=== PATIENT | male | born 1945 | race Caucasian/White ===

== ENCOUNTER → 2016-07-16 | Outpatient (CLI) | payer OTHER ==
[~2016-07-16] MED LIST: BLOOD PRESSURE MED; FENTANYL PF 100 MCG/2ML ONE; MIDAZOLAM 1 MG/ML, 5ML ONE; PIOG15TA9 PO; ROSU5TAB PO
== END | disposition home or self-care (01) ==
LOC: RAD 07:56
PROVIDERS: ATTEND Family Medicine
DX: M48.06 Spinal stenosis, lumbar region (principal); M47.895 Other spondylosis, thoracolumbar region; M47.897 Other spondylosis, lumbosacral region; M51.26 Other intervertebral disc displacement, lumbar region; M89.8X8 Other specified disorders of bone, other site; M79.605 Pain in left leg; M79.604 Pain in right leg; R20.0 Anesthesia of skin
CPT/HCPCS: 72148; J2250; J3010; 99156; 99157

== ENCOUNTER → 2018-04-23 | Outpatient (CLI) | payer OTHER ==
[~2018-04-23] MED LIST changes: +ALIS300T PO; +ASPI-496 PO; +CHOL40002 PO; +EXEN2VIA SC; +FEBU40TA PO; -FENTANYL PF 100 MCG/2ML ONE; +FOLI-17 PO; +INSU100I28 SC; +LORA-702 PO; +METH500T98 PO; -MIDAZOLAM 1 MG/ML, 5ML ONE; +MULT-717 PO; +OMEG1CAP23 PO; +PIOG15TA22 PO; -PIOG15TA9 PO; +VITA400T6 PO
[2018-04-23 09:38] LABS: ALANINE AMINOTRANSFERASE 47 U/L (12-78); ALBUMIN 3.7 g/dL (3.4-5.0); ANION GAP 9 mmol/L (5-15); CALCIUM 8.5 mg/dL (8.5-10.1); CHLORIDE 102 mmol/L (98-107); CREATININE 1.17 mg/dL (0.7-1.3)
[2018-04-23 09:40] LABS: ALKALINE PHOSPHATASE 73 U/L (45-117); BILIRUBIN,TOTAL 0.8 mg/dL (0.2-1.0); TOTAL PROTEIN 7.9 g/dL (6.4-8.2)
== END | disposition home or self-care (01) ==
LOC: STAR 08:20
PROVIDERS: ATTEND Thoracic Surgery (Cardiothoracic Vascular Surgery)
DX: Z01.818 Encounter for other preprocedural examination (principal)
CPT/HCPCS: 36415; 80053; 93005

== ENCOUNTER 2018-04-30 12:00 | Day surgery (SDC) | payer OTHER ==
[2018-04-23 08:51] VITALS: BP 132/88
[~2018-04-30] VITALS: Ht 188 cm; Wt 96.4 kg
[~2018-04-30 12:00] MED LIST changes: +BUPIVACAINE/PF-EPI 0.5% 1:200K ONE
[2018-04-30] MEDS ORDERED: LACTATED RINGERS 1,000 ML IV SCH ×2 (12:04→14:35)
[2018-04-30] MEDS ORDERED: ACETAMINOPHEN 500 MG TABLET PO ONE (12:30)
[2018-04-30] MEDS ORDERED: ONDANSETRON ODT 8 MG PO ONE (12:30)
[2018-04-30] MEDS ORDERED: GABAPENTIN 300 MG CAPSULE PO ONE (12:30)
[2018-04-30] MEDS ORDERED: FENTANYL PF 250 MCG/5ML ONE (13:03)
[2018-04-30] MEDS ORDERED: MIDAZOLAM 1 MG/ML, 2ML ONE (13:03)
[2018-04-30] MEDS ORDERED: KETOROLAC 30 MG/1 ML ONE (13:33)
[2018-04-30] MEDS ORDERED: PHENYLEPHRINE 10 MG/ML ONE (13:33)
[2018-04-30] MEDS ORDERED: GLYCOPYRROLATE 0.2MG/1ML, 5ML ONE (13:33)
[2018-04-30] MEDS ORDERED: ALBUTEROL/IPRATROPIUM 2.5MG/0.5MG, 3 ML NPPB PRN (14:00)
[2018-04-30] MEDS ORDERED: PROMETHAZINE 25 MG/ML, 1ML IV PRN (14:00)
[2018-04-30] MEDS ORDERED: OXYcodone 5 MG/5 ML ORAL.SOL UDC PO PRN (14:00)
[2018-04-30] MEDS ORDERED: HYDROmorphone 2 MG/ML, 1ML IVPush PRN (14:00)
[2018-04-30] MEDS ORDERED: ONDANSETRON 2MG/ML, 2ML IV PRN (14:00)
[2018-04-30] MEDS ORDERED: FENTANYL PF 100 MCG/2ML IV PRN (14:00)
[2018-04-30] MEDS ORDERED: hydrALAzine 20 MG/ML, 1ML IV PRN (14:00)
[2018-04-30] MEDS ORDERED: MEPERIDINE/PF 25MG/0.5ML IVPush PRN (14:00)
[2018-04-30] MEDS ORDERED: METOPROLOL 1 MG/ML, 5ML IV PRN (14:00)
[2018-04-30] MEDS ORDERED: MIDAZOLAM 1 MG/ML, 2ML IV PRN (14:00)
[2018-04-30] MEDS ORDERED: SUCCINYLCHOLINE 20 MG/ML, 10ML ONE (14:21)
[2018-04-30] MEDS ORDERED: ROCURONIUM 10MG/ML,5ML ONE (14:21)
[2018-04-30] MEDS ORDERED: DEXAMETHASONE 4 MG/ML, 1ML ONE (14:21)
[2018-04-30] MEDS ORDERED: NEOSTIGMINE 1 MG/ML, 10ML ONE (14:21)
[2018-04-30] MEDS ORDERED: PROPOFOL 10 MG/ML, 20ML ONE (14:21)
[2018-04-30] MEDS ORDERED: CEFAZOLIN 1,000 MG ONE (14:21)
[2018-04-30] MEDS ORDERED: OXYcodone 5 MG/5 ML ORAL.SOL UDC ONE (14:49)
[2018-04-30] MEDS ORDERED: ONDANSETRON 2MG/ML, 2ML IVPush PRN (15:00)
[2018-04-30] MEDS ORDERED: morphine SULFATE 10 MG/ML, 1ML IVPush PRN (15:00)
[2018-04-30] MEDS ORDERED: HYDROcodone/APAP 5/325 TABLET PO PRN (15:00)
== END 2018-04-30 17:35 | disposition home or self-care (01) ==
LOC: OUT 12:00 → UNDOADMOB 14:35 → ORIP 14:35 → OUT 17:35
PROVIDERS: ATTEND Thoracic Surgery (Cardiothoracic Vascular Surgery)
DX: K40.20 Bilateral inguinal hernia, without obstruction or gangrene, not specified as recurrent (principal); K21.9 Gastro-esophageal reflux disease without esophagitis; E11.9 Type 2 diabetes mellitus without complications; M10.9 Gout, unspecified; E78.00 Pure hypercholesterolemia, unspecified; I10 Essential (primary) hypertension; G47.33 Obstructive sleep apnea (adult) (pediatric); Z85.46 Personal history of malignant neoplasm of prostate; Z96.649 Presence of unspecified artificial hip joint; Z96.659 Presence of unspecified artificial knee joint; Z98.890 Other specified postprocedural states; Z79.82 Long term (current) use of aspirin; Z79.899 Other long term (current) drug therapy; Z79.4 Long term (current) use of insulin; Z72.89 Other problems related to lifestyle
CPT/HCPCS: 49650; 82962; J0330; J0690; J1100; J1885; J2250; J2370; J2704; J2710; J3010; J3490; J7120; Q0162; C1727; C1781

== ENCOUNTER 2018-08-30 16:56 | Emergency (ER) | payer OTHER ==
[~2018-08-30] VITALS: Ht 188 cm; Wt 100.0 kg
[~2018-08-30 16:56] MED LIST changes: -BUPIVACAINE/PF-EPI 0.5% 1:200K ONE
--- NOTE | 2018-08-30 17:45 | NUR ---
Pt reports intermitent RUQ pain x3 days with nausea starting today. Denies vomiting, states he called primary md and was told to come in. Pt denies need for pain or nausea meds. PA notified of pts hr (130's) pt denies cp, sob, palpitations. States "my oxygen is usually at 90% so dont worry" Pt rm air sats 88-91%, no resp distress noted. Fluids infusing
[2018-08-30 17:46] LABS: BASOPHILS % (AUTO) 0 % (0-1); EOSINOPHILS # (AUTO) 0.03 x10^3/uL (0-0.4); EOSINOPHILS % (AUTO) 1 % (1-7); LYMPHOCYTES % (AUTO) 3 % (22-44); MD NO; MEAN CORPUSCULAR HEMOGLOBIN 33.1 pg (27.5-34.5); MEAN CORPUSCULAR HGB CONC 34.1 g/dL (33.2-36.2); MEAN CORPUSCULAR VOLUME 97.1 fL (81-97); MEAN PLATELET VOLUME 9.2 fL (7.4-10.4); MONOCYTES # (AUTO) 0.15 x10^3/uL (0.2-0.8); MONOCYTES % (AUTO) 2 % (2-9); NEUTROPHILS # (AUTO) 6.11 x10^3/uL (1.8-6.8); NEUTROPHILS % (AUTO) 94 % (42-75); PLATELET COUNT 156 x10^3/uL (130-400); RED CELL DISTRIBUTION WIDTH 14.2 % (9.4-14.8)
[2018-08-30 17:55] LABS: ALANINE AMINOTRANSFERASE 42 U/L (12-78); ALBUMIN 3.7 g/dL (3.4-5.0); ANION GAP 8 mmol/L (5-15); CALCIUM 8.4 mg/dL (8.5-10.1); CHLORIDE 102 mmol/L (98-107); CREATININE 1.12 mg/dL (0.7-1.3)
[2018-08-30 18:00] LABS: ALKALINE PHOSPHATASE 71 U/L (45-117); TOTAL PROTEIN 7.7 g/dL (6.4-8.2); TROPONIN I < 0.015 ng/mL (0.000-0.045)
--- NOTE | 2018-08-30 18:32 | NUR ---
Pt back from [place], remains on cont cardiac and pulse ox monitoring, continues to deny need for pain or nausea meds
--- NOTE | 2018-08-30 19:03 | NUR ---
report received from carol campos.
--- NOTE | 2018-08-30 19:22 | NUR ---
pt's baseline spo2 is 90%. pt refused using oxy at this time.
[2018-08-30] MEDS ORDERED: SODIUM CHLORIDE 0.9% 1,000ML IVBOLUS ONE (19:30)
[2018-08-30] MEDS ORDERED: MAALOX/HYOSCYAMINE/LIDOCAINE 45 ML BTL PO ONE (19:30)
[2018-08-30] MEDS ORDERED: MAALOX/HYOSCYAMINE/LIDOCAINE 45 ML BTL ONE (19:36)
--- NOTE | 2018-08-30 19:53 | NUR ---
pt amb to br and back to room with steady gait. ua sent.
--- NOTE | 2018-08-30 19:53 | NUR ---
pt medicated per emar. pt tolerated well. ns infusing at this time.
[2018-08-30 20:02] LABS: MICROSCOPIC NOT IND
[2018-08-30 20:08] LABS: CULTURE INDICATED? NO
[2018-08-30 20:27] VITALS: BP 127/82
--- NOTE | 2018-08-30 20:46 | NUR ---
pt given dc instructions. pt's aox4. resps even and unlabored. pt amb to dc with steady gait. no acute distress at dc.
== END 2018-08-30 20:47 | disposition home or self-care (01) ==
LOC: ED 17:37
DX: K29.00 Acute gastritis without bleeding (principal); E11.9 Type 2 diabetes mellitus without complications; I10 Essential (primary) hypertension
CPT/HCPCS: 36415; 71045; 76700; 80053; 81003; 83690; 84484; 85025; 93005; 96360; 99284; J7030

== ENCOUNTER 2018-10-28 11:59 | Outpatient (CLI) | payer OTHER ==
[2018-10-28] MEDS ORDERED: FENTANYL PF 100 MCG/2ML ONE (12:59)
[2018-10-28] MEDS ORDERED: MIDAZOLAM 1 MG/ML, 5ML ONE (12:59)
== END 2018-10-28 23:59 | disposition home or self-care (01) ==
LOC: RAD 11:59
PROVIDERS: ATTEND Family Medicine
DX: M51.15 Intervertebral disc disorders with radiculopathy, thoracolumbar region (principal); M48.061 Spinal stenosis, lumbar region without neurogenic claudication
CPT/HCPCS: 72148; 99156; 99157; J2250; J3010

== ENCOUNTER 2018-12-08 12:25 | Outpatient (CLI) | payer OTHER | END 2018-12-08 23:59 | disposition home or self-care (01) | LOC: STAR 12:25 | PROVIDERS: ATTEND Neurological Surgery | DX: Z01.818 Encounter for other preprocedural examination (principal); M48.061 Spinal stenosis, lumbar region without neurogenic claudication; S33.140A Subluxation of L4/L5 lumbar vertebra, initial encounter; M25.78 Osteophyte, vertebrae; M41.86 Other forms of scoliosis, lumbar region; I45.10 Unspecified right bundle-branch block; R94.31 Abnormal electrocardiogram [ECG] [EKG]; X58.XXXA Exposure to other specified factors, initial encounter; Y93.89 Activity, other specified; Y92.89 Other specified places as the place of occurrence of the external cause; Y99.8 Other external cause status | CPT/HCPCS: 36415; 72110; 80053; 81003; 82962; 85025; 85610; 85730; 93005 ==

== ENCOUNTER 2018-12-30 15:18 | Outpatient (CLI) | payer OTHER ==
[~2018-12-30 15:18] MED LIST changes: +DEXL60CA2 PO; +GABA300C10 PO; +INSU100V35 SQ; +OXYC-302 PO; +RANI300T PO; +TIZA2CAP2 PO
== END 2018-12-30 23:59 | disposition home or self-care (01) ==
LOC: CFH 15:18
PROVIDERS: ATTEND Registered Nurse Registered Nurse First Assistant
DX: M79.661 Pain in right lower leg (principal); R60.0 Localized edema

== ENCOUNTER 2019-08-27 07:18 | Outpatient (CLI) | payer OTHER ==
[2019-08-27] MEDS ORDERED: MIDAZOLAM 1 MG/ML, 5ML ONE (07:44)
[2019-08-27] MEDS ORDERED: FENTANYL PF 100 MCG/2ML ONE (07:44)
[2019-08-27] MEDS ORDERED: GADOTERATE 10 MMOL/20 ML SYR ONE (08:38)
== END 2019-08-27 23:59 | disposition home or self-care (01) ==
LOC: RAD 07:18
PROVIDERS: ATTEND Ophthalmology
DX: H49.22 Sixth [abducent] nerve palsy, left eye (principal); E11.9 Type 2 diabetes mellitus without complications; G47.30 Sleep apnea, unspecified
CPT/HCPCS: 70553; 99156; 99157; A9575; J2250; J3010

== ENCOUNTER 2020-06-13 07:04 | Outpatient (CLI) | payer OTHER ==
[~2020-06-13 07:04] MED LIST changes: -FOLI-17 PO; +FOLI1TAB32 PO; -OXYC-302 PO; +OXYC1TAB14 PO
[2020-06-13] MEDS ORDERED: FENTANYL PF 100 MCG/2ML ONE (07:45)
[2020-06-13] MEDS ORDERED: FLUMAZENIL 0.1 MG/1 ML, 5ML ONE (07:45)
[2020-06-13] MEDS ORDERED: NALOXONE 1 MG/ML, 2ML ONE (07:45)
[2020-06-13] MEDS ORDERED: MIDAZOLAM 1 MG/ML, 5ML ONE (07:45)
== END 2020-06-13 23:59 | disposition home or self-care (01) ==
LOC: RAD 07:04
PROVIDERS: ATTEND Chiropractor
DX: M54.2 Cervicalgia (principal); M48.02 Spinal stenosis, cervical region; M43.12 Spondylolisthesis, cervical region; E11.9 Type 2 diabetes mellitus without complications; I10 Essential (primary) hypertension
CPT/HCPCS: 72141; 99156; 99157; J2250; J3010; J2310